=== PATIENT | male | born 1945 | race Hispanic/Latino ===

== ENCOUNTER 2021-04-15 08:00 | Inpatient (IN) | payer OTHER ==
[~2021-04-15] VITALS: Ht 180.3 cm; Wt 85.8 kg
[~2021-04-15 08:00] MED LIST: AMLO2.5T4 PO; ATOR-2 PO; FISH1CAP63 PO; GLIP10TA9 PO; METF-444 PO
[2021-04-15 10:25] VITALS: BP_SYST 163; BP_SYST 188; BP_SYST 213; BP_DIAS 77; BP_DIAS 91; BP_DIAS 93
[2021-04-15 10:48] LABS: BASOPHILS % (AUTO) 0.9 % (0.0-5.0); EOSINOPHILS % (AUTO) 2.7 % (0.0-8.0); HEMATOCRIT 42.2 % (42-54); LYMPHOCYTES % (AUTO) 28.1 % (21.0-51.0); MEAN CORPUSCULAR HGB CONC 31.3 g/dL (32.0-36.0); MEAN CORPUSCULAR VOLUME 86.5 fL (79-99); MONOCYTES % (AUTO) 13.1 % (3.0-13.0); NEUTROPHILS % (AUTO) 54.5 % (40.0-77.0); PLATELET COUNT (AUTO) 261 K/uL (130-400); RED BLOOD CELL COUNT(AUTO) 4.88 MIL/uL (4.50-6.20); RED CELL DISTRIBUTION WIDTH 13.4 % (11.0-15.5); WHITE BLOOD COUNT (AUTO) 5.6 K/uL (4.8-10.8)
[2021-04-15 10:52] LABS: APPEARANCE,URINE Clear (CLEAR); BILIRUBIN,URINE Negative (NEGATIVE); COLOR,URINE Yellow (YELLOW); GLUCOSE, URINE (UA) TRACE mg/dL (NEGATIVE); KETONES,URINE Negative (NEGATIVE); LEUKOCYTE ESTERASE ,URINE Negative (NEGATIVE); NITRATE,URINE Negative (NEGATIVE); OCCULT BLOOD,URINE Negative (NEGATIVE); PROTEIN,URINE POS 2+ mg/dL (NEGATIVE)
[2021-04-15 10:59] LABS: AMORPHOUS SEDIMENT,UR Few /LPF (None Seen); BACTERIA,URINE None Seen /HPF (None Seen); RBC,URINE 0-1 /HPF (0-1); SQUAMOUS EPITHELIAL CELL,UR 0-2 /HPF (0-2); WBC,URINE 0-1 /HPF (0-1)
[2021-04-15 11:01] LABS: PROTHROMBIN TIME 10.9 SEC (9.6-11.6)
[2021-04-15 11:02] LABS: CREATININE 0.9 mg/dL (0.5-1.5)
[2021-04-16] MEDS ORDERED: ROSU40TA21 PO (14:27)
[2021-04-16] MEDS ORDERED: CALC-1106 PO (14:27)
[2021-04-16] MEDS ORDERED: LISI20TA24 PO (14:27)
[2021-04-16] MEDS ORDERED: CYAN250014 PO (14:27)
[2021-04-16] MEDS ORDERED: ALOG25TA2 PO (14:27)
[2021-04-16] MEDS ORDERED: AEC81 PO (14:27)
[2021-04-16] MEDS ORDERED: MECL-160 PO (14:27)
[2021-04-17] VITALS (24 sets, daily range): BP systolic 139–161; BP diastolic 62–82
[2021-04-17] MEDS: CEFAZOLIN SODIUM 1 GM VIAL IVP SCH ×3 (05:00→22:50)
[2021-04-17] MEDS ORDERED: 0.9%NACL 1000ML 1,000 ML IV ONE (09:43)
[2021-04-17] MEDS ORDERED: TRANEXAMIC ACID 1000MG/10ML ONE ×2 (13:47→17:38)
[2021-04-17] MEDS ORDERED: CEFAZOLIN SODIUM 1 GM VIAL ONE (13:47)
[2021-04-17] MEDS ORDERED: ROPIVACAINE 0.5% 5MG/ML 30ML IJ ONE (14:57)
[2021-04-17] MEDS ORDERED: LIDOCAINE PF 100MG/5ML (2%) SYRINGE 5ML ONE (14:58)
[2021-04-17] MEDS ORDERED: PROPOFOL 10 MG/ML 20ML VIAL IV ONE (14:58)
[2021-04-17] MEDS ORDERED: SUCCINYLCHOLINE CHLORIDE 20 MG/ML 10 ML VIAL ONE (14:58)
[2021-04-17] MEDS ORDERED: MIDAZOLAM HCL 1 MG/ML 2ML VIAL ONE (14:58)
[2021-04-17] MEDS ORDERED: ROCURONIUM 10MG/1ML SYR 10 MG/ML ML ONE (15:04)
[2021-04-17] MEDS ORDERED: GLYCOPYRROLATE 1 MG/5 ML SYRINGE ONE (15:27)
[2021-04-17] MEDS ORDERED: CEFAZOLIN SODIUM 1 GM VIAL IRRIG ONE (16:00)
[2021-04-17] MEDS ORDERED: FENTANYL CITRATE PF 50 MCG/1 ML 2ML VIAL ONE ×2 (16:02→16:57)
[2021-04-17] MEDS ORDERED: ONDANSETRON 4MG INJ ONE (16:59)
[2021-04-17] MEDS ORDERED: NEOSTIGMINE 5MG/5ML SYR IV ONE (16:59)
[2021-04-17] MEDS ORDERED: FERROUS FUMARATE 324 MG TABLET PO PRN (18:00)
[2021-04-17] MEDS ORDERED: POTASSIUM CHLORIDE 20MEQ/100ML 100 ML IV PRN (18:00)
[2021-04-17] MEDS ORDERED: OXYCODONE HCL 5 MG TAB PO PRN (18:00)
[2021-04-17] MEDS ORDERED: TEMAZEPAM 15 MG CAPSULE PO PRN (18:00)
[2021-04-17] MEDS ORDERED: LIDOCAINE HCL-MPF 1% 2ML VIAL IV PRN (18:00)
[2021-04-17] MEDS ORDERED: TRAMADOL HCL 50 MG TABLET PO PRN (18:00)
[2021-04-17] MEDS ORDERED: DiphenhydrAMINE HCL 50 MG/ML VIAL IVP PRN (18:00)
[2021-04-17] MEDS ORDERED: KETOROLAC 15MG/ML VIAL (15MG/ML) IV PRN (18:00)
[2021-04-17] MEDS ORDERED: POTASSIUM CHLORIDE 10% ELIXIR 20 MEQ/15 ML UDCUP PO PRN (18:00)
[2021-04-17] MEDS ORDERED: ONDANSETRON 4MG INJ IVP PRN (18:00)
[2021-04-17] MEDS ORDERED: KETOROLAC 30MG VIAL (30MG/ML) ONE (18:32)
[2021-04-17] MEDS ORDERED: MEPERIDINE-PF 25 MG/ML SYG ONE (18:32)
[2021-04-17] MEDS: ACETAMINOPHEN 500 MG TABLET PO SCH ×2 (21:35→22:50)
[2021-04-17] MEDS: CELECOXIB 200 MG CAP PO SCH (21:35)
[2021-04-17] MEDS: FAMOTIDINE 20MG TAB PO SCH (21:35)
[2021-04-17] MEDS: PREGABALIN 25 MG CAP PO SCH (21:36)
[2021-04-17] MEDS: 0.9%NACL 1000ML 1,000 ML IV SCH (21:38)
[2021-04-17] MEDS ORDERED: ASPIRIN 81MG CHEW TAB ONE (21:54)
[2021-04-17] MEDS: INSULIN HUMULIN R 100 UNIT/ML 3ML SQ SCH (22:00)
[2021-04-18] MEDS: 0.9%NACL 1000ML 1,000 ML IV SCH ×2 (03:43→14:00)
[2021-04-18 04:13] VITALS: BP 149/75
[2021-04-18 04:57] LABS: HEMATOCRIT 35.1 % (42-54); MEAN CORPUSCULAR HEMOGLOBIN 26.7 pg (27.0-33.0); MEAN CORPUSCULAR HGB CONC 30.5 g/dL (32.0-36.0); MEAN CORPUSCULAR VOLUME 87.5 fL (79-99); PLATELET COUNT (AUTO) 217 K/uL (130-400); RED BLOOD CELL COUNT(AUTO) 4.01 MIL/uL (4.50-6.20); RED CELL DISTRIBUTION WIDTH 13.5 % (11.0-15.5); WHITE BLOOD COUNT (AUTO) 8.6 K/uL (4.8-10.8)
[2021-04-18 05:21] LABS: CREATININE 0.8 mg/dL (0.5-1.5)
[2021-04-18] MEDS: KCL 20 MEQ ERTAB PO PRN ×4 (05:37→16:43)
[2021-04-18] MEDS: INSULIN HUMULIN R 100 UNIT/ML 3ML SQ SCH ×4 (06:02→20:47)
[2021-04-18] MEDS: CEFAZOLIN SODIUM 1 GM VIAL IVP SCH (06:02)
[2021-04-18 07:30] VITALS: BP 146/68
[2021-04-18] MEDS: METFORMIN HCL 500 MG TABLET PO SCH ×2 (07:37→16:52)
[2021-04-18] MEDS: OXYCODONE HCL 5 MG TAB PO PRN ×2 (08:08→19:04)
[2021-04-18] MEDS: ALOGLIPTIN BENZOATE 25 MG PO SCH (09:00)
[2021-04-18] MEDS: PREGABALIN 25 MG CAP PO SCH ×3 (09:00→19:05)
[2021-04-18] MEDS: CALCIUM CARB 500MG PO PRN ×2 (09:54→19:05)
[2021-04-18] MEDS: AMLODIPINE 2.5 MG TAB PO SCH (09:54)
[2021-04-18] MEDS: TAMSULOSIN HCL 0.4 MG CAP.ER.24H PO SCH (09:54)
[2021-04-18] MEDS: GLIPIZIDE 5 MG TABLET PO SCH ×2 (09:54→19:04)
[2021-04-18] MEDS: POLYETHYLENE GLYCOL 3350 17 GM POWD.PACK PO SCH (09:55)
[2021-04-18] MEDS: FAMOTIDINE 20MG TAB PO SCH ×2 (09:55→19:05)
[2021-04-18] MEDS: ASPIRIN 81 MG EC TAB PO SCH ×2 (09:55→19:04)
[2021-04-18] MEDS: CELECOXIB 200 MG CAP PO SCH ×2 (09:55→19:05)
[2021-04-18] MEDS: LISINOPRIL 20 MG TABLET PO SCH (09:55)
[2021-04-18] MEDS: ACETAMINOPHEN 500 MG TABLET PO SCH ×2 (09:56→17:35)
[2021-04-18 11:00] VITALS: BP 105/41
[2021-04-18 16:00] VITALS: BP 118/78
[2021-04-18] MEDS: ATORVASTATIN 40 MG TABLET PO SCH (19:05)
[2021-04-18 20:44] VITALS: BP 114/66
[2021-04-18 23:53] VITALS: BP 142/60
[2021-04-19] MEDS: ACETAMINOPHEN 500 MG TABLET PO SCH ×3 (01:07→18:00)
[2021-04-19 04:57] VITALS: BP 153/66
[2021-04-19] MEDS: INSULIN HUMULIN R 100 UNIT/ML 3ML SQ SCH ×4 (05:59→21:31)
[2021-04-19 07:45] VITALS: BP 166/72
[2021-04-19] MEDS: TAMSULOSIN HCL 0.4 MG CAP.ER.24H PO SCH (08:12)
[2021-04-19] MEDS: POLYETHYLENE GLYCOL 3350 17 GM POWD.PACK PO SCH (08:12)
[2021-04-19] MEDS: FAMOTIDINE 20MG TAB PO SCH ×2 (08:13→21:30)
[2021-04-19] MEDS: METFORMIN HCL 500 MG TABLET PO SCH ×2 (08:13→17:12)
[2021-04-19] MEDS: GLIPIZIDE 5 MG TABLET PO SCH ×2 (08:13→21:30)
[2021-04-19] MEDS: ASPIRIN 81 MG EC TAB PO SCH ×2 (08:13→21:30)
[2021-04-19] MEDS: PREGABALIN 25 MG CAP PO SCH ×2 (08:13→21:30)
[2021-04-19] MEDS: CELECOXIB 200 MG CAP PO SCH ×2 (08:13→21:29)
[2021-04-19] MEDS: OXYCODONE HCL 5 MG TAB PO PRN ×3 (08:15→21:29)
[2021-04-19] MEDS: ALOGLIPTIN BENZOATE 25 MG PO SCH (08:23)
[2021-04-19] MEDS: LISINOPRIL 20 MG TABLET PO SCH (08:52)
[2021-04-19] MEDS: AMLODIPINE 2.5 MG TAB PO SCH (08:52)
[2021-04-19 11:44] VITALS: BP 158/73
[2021-04-19 16:00] VITALS: BP 144/66
[2021-04-19 20:00] VITALS: BP 153/67
[2021-04-19] MEDS: ATORVASTATIN 40 MG TABLET PO SCH (21:30)
[2021-04-20] MEDS ORDERED: BISACODYL 10 MG SUPP.RECT RC PRN (18:00)
== END 2021-04-19 21:45 | DRG 470 ==
LOC: EDSTATUS 08:00 → DAHIP 04-17 08:37 → 3DH 04-17 18:34
PROVIDERS: ADMIT Orthopaedic Surgery; ATTEND Orthopaedic Surgery
PROC: 3E0T33Z Introduction of Anti-inflammatory into Peripheral Nerves and Plexi, Percutaneous Approach (ICD-10-PCS; 2021-04-17)
PROC: 0SRC0J9 Replacement of Right Knee Joint with Synthetic Substitute, Cemented, Open Approach (ICD-10-PCS; principal; 2021-04-17 14:57)
PROC: 3E0T3BZ Introduction of Anesthetic Agent into Peripheral Nerves and Plexi, Percutaneous Approach (ICD-10-PCS; 2021-04-17 14:57)
DX: M17.11 Unilateral primary osteoarthritis, right knee (principal); I10 Essential (primary) hypertension; E11.9 Type 2 diabetes mellitus without complications; E78.5 Hyperlipidemia, unspecified; Z20.822 Contact with and (suspected) exposure to COVID-19; Z96.652 Presence of left artificial knee joint; R26.89 Other abnormalities of gait and mobility; G89.29 Other chronic pain; Z87.891 Personal history of nicotine dependence; Z83.3 Family history of diabetes mellitus; Z82.49 Family history of ischemic heart disease and other diseases of the circulatory system
CPT/HCPCS: 36415; 80048; 81001; 82948; 85025; 85027; 85610; 87088; 87635; 87641; 97039; G0378; J0330; J0690; J1815; J1885; J2001; J2175; J2250; J2405; J2704; J2710; J2795; J3010; J3480; J3490; J7030; J7120